=== PATIENT | female | born 1990 | race Two or more races ===

== ENCOUNTER 2018-09-25 17:31 | Emergency (ER) | payer OTHER ==
--- NOTE | 2018-09-25 18:27 | ER Document Report ---
ED General - General Chief Complaint: Anxiety Stated Complaint: POSSIBLE ANXIETY ATTACK Time Seen by Provider: 09/25/18 18:15 Mode of Arrival: Ambulatory Information source: Patient TRAVEL OUTSIDE OF THE [place] IN LAST 30 DAYS: No - HPI Patient complains to provider of: Chest pain, shortness of breath tingling in fingers. Onset: Other - Symptoms started at 4:00 Onset/Duration: Sudden Quality of pain: Sharp, Stabbing Severity: Mild Associated symptoms: denies: Chills, Fever Exacerbated by: Denies Relieved by: Denies Similar symptoms previously: No Recently seen / treated by doctor: No Notes: 27-year-old female comes in by ambulance with acute onset midsternal sharp nonradiating chest pain with shortness of breath and tingling in her fingers. 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 These are getting worked up by a neurologist. Patient does not report any other cardiovas cular disease. Does not smoke. Does not use drugs. - Related Data Allergies/Adverse Reactions: No Known Allergies Allergy (Unverified 09/25/18 17:39) Past Medical History - General Information source: Patient - Social History Smoking Status: Never Smoker Family History: Reviewed & Not Pertinent Review of Systems - Review of Systems Notes: Constitutional: No fevers. No chills. EENT: No eye redness. No eye pain. No ear pain. No sore throat. Cardiovascular: Positive for chest pain and palpitations Respiratory: No cough. Positive for shortness of breath. No respiratory distress. Gastrointestinal: No abdominal pain. No nausea, vomiting, or diarrhea. Genitourinary: Atraumatic. No lesions. No pain. No discharge. Musculoskeletal: Atraumatic. No swelling. No deformities. Skin: No rash or lesions. Lymphatic: No swollen lymph nodes. Neurologic: Positive for lightheadedness Psychiatric: No suicidal or homicidal ideation. Physical Exam - Vital signs Vitals: Temp Pulse Resp BP Pulse Ox 99.0 F 70 14 128/78 H 100 09/25/18 17:38 09/25/18 17:38 09/25/18 17:38 09/25/18 17:38 09/25/18 17:38 - Notes Notes: General: Well-developed, well-nourished. In no acute distress. Non-toxic appearing. Cardiac: Well-perfused. Regular rate and rhythm. No murmurs, rubs, or gallops. Pulmonary: No respiratory distress. No cyanosis. Bilateral lung fiels are clear to auscultation. Abdominal: Non-distended. Non-rigid. Bowels sounds are present in all four quadrants. No guarding or rebound. HEENT: Head is atraumatic. Conjunctivae not reddened. No tearing. PERRL. EOMI. Orbits atraumatic. No periorbital swelling or erythema. Oropharynx is without erythema, swelling, or exudates. Neck: Supple. No adenopathy. No meningismus. Dermatologic: Warm with good turgor. No rash. Atraumatic. Chest: Atraumatic. No chest wall tenderness to palpation. Musculoskeletal: Moves all extremities well. No range of motion deficits. no muscular or joint tenderness. No paraspinal muscle tenderness. no midline spinal tenderness or step-off. Genitourinary: Examination deferred Neurologic: No gross neurologic deficits. Psychiatric: Normal mood. Course - Re-evaluation Re-evalutation: 09/25/18 20:01 Lab results are all back. The EKG looks good. Chest x-ray from a glance looks good. 09/25/18 20:04 Patient has really no risk factors for heart disease. Her workup is negative. Her heart score is 0. Will discharge home with outpatient follow-up - Vital Signs Vital signs: Temp Pulse Resp BP Pulse Ox 99.0 F 70 14 128/78 H 100 09/25/18 17:38 09/25/18 17:38 09/25/18 17:38 09/25/18 17:38 09/25/18 17:38 - Laboratory Result Diagrams: 09/25/18 18:50 09/25/18 18:50 Laboratory results interpreted by me: 09/25/18 19:22 Ur Leukocyte Esterase SMALL H - EKG Interpretation by Nd EKG shows normal: Sinus rhythm, [place], Intervals, QRS Complexes, ST-T Waves Rate: Normal Rhythm: NSR Discharge - Discharge Clinical Impression: Chest pain, atypical, Palpitations Condition: Good Disposition: HOME, SELF-CARE Additional Instructions: Please follow-up as an outpatient if you continue to have these symptoms. Referrals: [facility] [Provider Group] - Follow up in 3-5 days
[2018-09-25 19:07] LABS: ABSOLUTE EOSINOPHILS # (AUTO) 0.1 10^3/uL (0.0-0.6); ABSOLUTE LYMPHOCYTES (AUTO) 2.5 10^3/uL (0.5-4.7); ABSOLUTE MONOCYTES (AUTO) 0.5 10^3/uL (0.1-1.4); ABSOLUTE NEUT (AUTO) 3.7 10^3/uL (1.7-8.2); BASOPHILS % (AUTO) 0.4 % (0-2); HEMATOCRIT 40.5 % (36.0-47.0); HEMOGLOBIN 13.6 g/dL (12.0-15.5); LYMPHOCYTES % (AUTO) 36.3 % (13-45); MEAN CORPUSCULAR HEMOGLOBIN 29.3 pg (27.0-33.4); MEAN CORPUSCULAR HGB CONC 33.6 g/dL (32.0-36.0); MEAN CORPUSCULAR VOLUME 87 fl (80-97); MONOCYTES % (AUTO) 6.8 % (3-13); PLATELET COUNT 233 10^3/uL (150-450); RED BLOOD COUNT 4.66 10^6/uL (3.72-5.28); RED CELL DISTRIBUTION WIDTH 13.7 % (11.5-14.0); SEGMENTED NEUTROPHILS % (AUTO) 55.5 % (42-78); TOTAL CELLS COUNTED % (AUTO) 100 %; WHITE BLOOD COUNT 6.7 10^3/uL (4.0-10.5)
[2018-09-25 19:26] LABS: ALANINE AMINOTRANSFERASE 25 U/L (9-52); ALBUMIN 4.4 g/dL (3.5-5.0); ALKALINE PHOSPHATASE 71 U/L (38-126); ANION GAP 10 (5-19); ASPARTATE AMINO TRANSFERASE 31 U/L (14-36); BILIRUBIN,DIRECT 0.3 mg/dL (0.0-0.4); BILIRUBIN,TOTAL 0.6 mg/dL (0.2-1.3); BLOOD UREA NITROGEN 7 mg/dL (7-20); CALCIUM 9.3 mg/dL (8.4-10.2); CARBON DIOXIDE 24 mmol/L (22-30); CHLORIDE 105 mmol/L (98-107); GLUCOSE 83 mg/dL (75-110); POTASSIUM 3.9 mmol/L (3.6-5.0); SODIUM 138.6 mmol/L (137-145); TOTAL PROTEIN 7.2 g/dL (6.3-8.2)
[2018-09-25 19:38] LABS: APPEARANCE,URINE CLEAR; BILIRUBIN,URINE NEGATIVE (NEGATIVE); COLOR,URINE YELLOW; GLUCOSE, URINE NEGATIVE (NEGATIVE); KETONES,URINE NEGATIVE (NEGATIVE); LEUKOCYTE ESTERASE,URINE SMALL (NEGATIVE); NITRITE,URINE NEGATIVE (NEGATIVE); PROTEIN,URINE NEGATIVE (NEGATIVE); URINE SPECIFIC GRAVITY 1.009; UROBILINOGEN,URINE NEGATIVE mg/dL (<2.0)
--- NOTE | 2018-09-25 20:03 | RADIOLOGY REPORT (SQ) ---
XR CHEST 2 VIEWS HISTORY: cp. COMPARISON: None. FINDINGS: The heart size is normal. The lungs are clear. No pleural effusion or pneumothorax is seen. No acute bony findings. IMPRESSION: No evidence of acute cardiopulmonary disease.
[2018-09-25 20:23] VITALS: BP 123/69
--- NOTE | 2018-09-26 07:13 | EKG REPORT ---
SEVERITY:- NORMAL ECG - SINUS RHYTHM : Confirmed by: Yuan Morrissey MD 26-Sep-2018 07:13:05
== END 2018-09-25 20:21 | disposition home or self-care (01) ==
LOC: ER 17:31
DX: R07.89 Other chest pain (principal); R06.02 Shortness of breath; R20.2 Paresthesia of skin; R00.2 Palpitations; R42 Dizziness and giddiness; Z86.73 Personal history of transient ischemic attack (TIA), and cerebral infarction without residual deficits
CPT/HCPCS: 36415; 71046; 80053; 81001; 81025; 84484; 85025; 93005; 93010; 99284